=== PATIENT | male | born 1940 | race Asian ===

== ENCOUNTER → 2016-05-20 | Outpatient (CLI) | payer MEDICARE, OTHER ==
--- NOTE | 2016-05-21 08:36 | Diagnostic Imaging Report ---
Indication: Chest pain Technique: Two views of the chest Comparison: 01/30/2015 Findings: The heart is enlarged. The aorta is tortuous and calcified and ectatic. There are degenerative changes of the thoracic spine. No significant interim change Impression: Mild cardio megaly No acute process
== END | disposition home or self-care (01) ==
LOC: RAD 12:41
DX: R07.9 Chest pain, unspecified (principal); I51.7 Cardiomegaly; R09.89 Other specified symptoms and signs involving the circulatory and respiratory systems
CPT/HCPCS: 71020

== ENCOUNTER 2018-06-15 13:59 | Outpatient (CLI) | payer MEDICARE, OTHER ==
--- NOTE | 2018-06-15 16:15 | Diagnostic Imaging Report ---
Indication: Cough Technique: One view of the chest Comparison: 05/20/2016 Findings: Less optimal inspiration currently. Lungs and pleural spaces are clear. The heart size is borderline enlarged. Impression: No acute process
== END 2018-06-15 15:59 | disposition home or self-care (01) ==
LOC: RAD 13:59
DX: R05 Cough (principal); R09.89 Other specified symptoms and signs involving the circulatory and respiratory systems
CPT/HCPCS: 71046